=== PATIENT | male | born 1940 | race Caucasian/White ===

== ENCOUNTER 2017-05-19 07:39 | Inpatient (IN) | payer OTHER ==
[~2017-05-19] VITALS: Ht 167.6 cm; Wt 70.5 kg
[~2017-05-19 07:39] MED LIST: GLUCOPHAGE1000 MG PO; HYDROCODON-ACE1 EAC7 PO; METFORMIN HCL500 MG PO; MOTRIN800 MG PO; OLANZAPINE20 MG PO; PRAVACHOL40 MG PO; PREVACID30 MG PO; PRILOSEC40 MG PO; PROZAC40 MG PO; ZOFRAN ODT4 MG PO
[2017-05-19 08:15] LABS: HEMATOCRIT 42.9 % (38.0-50.0); MCH 30.5 PG (29.0-34.0); MCHC 34.5 G/DL (30.0-36.0); MCV 88.5 FL (86-99); RBC DIS.WIDTH-CV 12.8 % (11.8-14.6); RBC DIS.WIDTH-SD 41.6 % (39-53); RED BLOOD COUNT 4.85 M/uL (4.00-5.50); WHITE BLOOD COUNT 12.1 K/uL (4.1-10.2)
[2017-05-19 08:35] LABS: CHLORIDE 102 mEq/L (99-109); POTASSIUM 4.4 mEq/L (3.7-5.4); SODIUM 137 mEq/L (136-147)
[2017-05-19 08:37] LABS: GLUCOSE 124 mg/dL (70-99)
[2017-05-19 08:38] LABS: ANION GAP 10 MEQ/L (2-14); TROP-I INTERPRETATION NEGATIVE; TROPONIN-I < 0.01 ng/mL (0.0-0.30)
[2017-05-19 08:39] LABS: TOTAL BILIRUBIN 0.5 mg/dL (0.0-1.0)
[2017-05-19 08:41] LABS: ALKALINE PHOSPHATASE 69 IU/L (3-129); GFR ESTIMATE (CALCULATED) > 59 mL/min/
[2017-05-19 08:42] LABS: UREA NITROGEN (BUN) 16 mg/dL (9-23)
[2017-05-19 08:44] LABS: LIPASE 8 U/L (1.0-51.0)
[2017-05-19 09:00] LABS: MEAN PLAT.VOLUME 9.6 uM^3 (9.0-12.4); PLAT.SUFFICIENCY INCREASED; PLATELET COUNT 393 K/uL (156-360)
[2017-05-19 09:18] LABS: ADD MIUA? YES; BILIRUBIN NEGATIVE; BLOOD NEGATIVE; COLOR YELLOW ((YELLOW)); GLUCOSE (STRIP) NEGATIVE; KETONES 20; LEUKOCYTES NEGATIVE; NITRITE NEGATIVE; PROTEIN (STRIP) 30; UROBILINOGEN 0.2 MG/DL (0.2-1.0)
[2017-05-19 09:24] LABS: BACTERIA RARE /HPF; CALCIUM OXALATE CRYSTALS 1+ /HPF; EPITHELIAL CELLS RARE /HPF; MUCUS 2+ /LPF; RED BLOOD CELLS 0-5 /HPF (0-5); WHITE BLOOD CELLS 0-5 /HPF (0-5)
[2017-05-19] MEDS ORDERED: LANSOPRAZOLE30 MG PO (11:27)
[2017-05-19] MEDS ORDERED: DAILY VITAMIN1 EAC4 PO (11:27)
[2017-05-19] MEDS ORDERED: LO-DOSE ASPIRIN81 M1 PO (11:27)
[2017-05-19 17:45] VITALS: BP 120/57
[2017-05-19 20:35] VITALS: BP 107/52
[2017-05-20] VITALS (8 sets, daily range): BP systolic 112–176; BP diastolic 55–97
[2017-05-20 07:19] LABS: HEMATOCRIT 36.5 % (38.0-50.0); MCH 31.3 PG (29.0-34.0); MCHC 34.2 G/DL (30.0-36.0); MCV 91.5 FL (86-99); MEAN PLAT.VOLUME 10.2 uM^3 (9.0-12.4); PLATELET COUNT 317 K/uL (156-360); RBC DIS.WIDTH-CV 13.4 % (11.8-14.6); RBC DIS.WIDTH-SD 45.1 % (39-53); RED BLOOD COUNT 3.99 M/uL (4.00-5.50); WHITE BLOOD COUNT 8.9 K/uL (4.1-10.2)
[2017-05-20 07:45] LABS: ANION GAP 5 MEQ/L (2-14); CHLORIDE 107 MEQ/L (99-109); GFR ESTIMATE (CALCULATED) > 59 mL/min/; GLUCOSE 106 mg/dL (70-99); POTASSIUM 4.7 MEQ/L (3.7-5.4); SAMPLE HEMOLYSIS CHECK 1; SAMPLE ICTERIC CHECK 0; SAMPLE LIPEMIA CHECK 0; SODIUM 139 MEQ/L (136-147); UREA NITROGEN (BUN) 8 mg/dL (9-23)
[2017-05-21 00:02] VITALS: BP 121/58
[2017-05-21 04:08] VITALS: BP 114/54
[2017-05-21 06:45] VITALS: BP 113/56
[2017-05-21 07:05] LABS: HEMATOCRIT 35.2 % (38.0-50.0); MCH 30.8 PG (29.0-34.0); MCHC 33.8 G/DL (30.0-36.0); MCV 91.2 FL (86-99); MEAN PLAT.VOLUME 10.2 uM^3 (9.0-12.4); PLATELET COUNT 298 K/uL (156-360); RBC DIS.WIDTH-CV 13.5 % (11.8-14.6); RBC DIS.WIDTH-SD 45.1 % (39-53); RED BLOOD COUNT 3.86 M/uL (4.00-5.50); WHITE BLOOD COUNT 8.7 K/uL (4.1-10.2)
[2017-05-21 07:30] LABS: ANION GAP 4 MEQ/L (2-14); CHLORIDE 107 MEQ/L (99-109); GFR ESTIMATE (CALCULATED) > 59 mL/min/; GLUCOSE 111 mg/dL (70-99); POTASSIUM 4.1 MEQ/L (3.7-5.4); SAMPLE HEMOLYSIS CHECK 0; SAMPLE ICTERIC CHECK 0; SAMPLE LIPEMIA CHECK 0; SODIUM 140 MEQ/L (136-147); UREA NITROGEN (BUN) 6 mg/dL (9-23)
[2017-05-21 11:51] VITALS: BP 114/60
[2017-05-21 16:14] VITALS: BP 130/66
[2017-05-21 20:08] VITALS: BP 153/65
[2017-05-22 00:13] VITALS: BP 129/61
[2017-05-22 04:11] VITALS: BP 134/62
[2017-05-22 06:38] LABS: HEMATOCRIT 35.1 % (38.0-50.0); MCH 31.7 PG (29.0-34.0); MCHC 34.5 G/DL (30.0-36.0); MCV 91.9 FL (86-99); MEAN PLAT.VOLUME 9.8 uM^3 (9.0-12.4); PLATELET COUNT 300 K/uL (156-360); RBC DIS.WIDTH-CV 13.3 % (11.8-14.6); RED BLOOD COUNT 3.82 M/uL (4.00-5.50); WHITE BLOOD COUNT 8.9 K/uL (4.1-10.2)
[2017-05-22 07:03] LABS: ANION GAP 5 MEQ/L (2-14); CHLORIDE 108 MEQ/L (99-109); GFR ESTIMATE (CALCULATED) > 59 mL/min/; GLUCOSE 108 mg/dL (70-99); SAMPLE HEMOLYSIS CHECK 0; SAMPLE ICTERIC CHECK 0; SAMPLE LIPEMIA CHECK 0; SODIUM 142 MEQ/L (136-147); UREA NITROGEN (BUN) 6 mg/dL (9-23)
[2017-05-22 07:45] VITALS: BP 137/71
[2017-05-22 15:00] VITALS: BP 134/67
[2017-05-22 21:31] VITALS: BP 141/62
[2017-05-23 00:09] VITALS: BP 133/59; BP 141/62
[2017-05-23 04:06] VITALS: BP 140/63
[2017-05-23 07:00] VITALS: BP 130/64
[2017-05-23 07:15] LABS: HEMATOCRIT 34.5 % (38.0-50.0); MCH 29.8 PG (29.0-34.0); MCV 90.3 FL (86-99); MEAN PLAT.VOLUME 9.6 uM^3 (9.0-12.4); PLATELET COUNT 349 K/uL (156-360); RBC DIS.WIDTH-CV 12.9 % (11.8-14.6); RBC DIS.WIDTH-SD 42.8 % (39-53); RED BLOOD COUNT 3.82 M/uL (4.00-5.50); WHITE BLOOD COUNT 8.1 K/uL (4.1-10.2)
[2017-05-23 07:42] LABS: ANION GAP 4 MEQ/L (2-14); CHLORIDE 108 MEQ/L (99-109); GFR ESTIMATE (CALCULATED) > 59 mL/min/; GLUCOSE 104 mg/dL (70-99); POTASSIUM 4.3 MEQ/L (3.7-5.4); SAMPLE HEMOLYSIS CHECK 0; SAMPLE ICTERIC CHECK 0; SAMPLE LIPEMIA CHECK 0; SODIUM 142 MEQ/L (136-147); UREA NITROGEN (BUN) 6 mg/dL (9-23)
[2017-05-23 11:44] VITALS: BP 130/62
[2017-05-23] MEDS ORDERED: HYDROCODON-ACE1 EAC7 PO (12:50)
[2017-05-23 16:00] VITALS: BP 161/61
[2017-05-23 23:25] VITALS: BP 157/70
[2017-05-24 07:35] VITALS: BP 114/65
[2017-05-24 08:03] LABS: HEMATOCRIT 38.7 % (38.0-50.0); MCH 30.6 PG (29.0-34.0); MCHC 33.9 G/DL (30.0-36.0); MCV 90.4 FL (86-99); RBC DIS.WIDTH-CV 13.2 % (11.8-14.6); RBC DIS.WIDTH-SD 43.3 % (39-53); RED BLOOD COUNT 4.28 M/uL (4.00-5.50); WHITE BLOOD COUNT 8.5 K/uL (4.1-10.2)
[2017-05-24 08:30] LABS: ANION GAP 6 MEQ/L (2-14); CHLORIDE 105 MEQ/L (99-109); GFR ESTIMATE (CALCULATED) > 59 mL/min/; GLUCOSE 96 mg/dL (70-99); POTASSIUM 4.2 MEQ/L (3.7-5.4); SAMPLE HEMOLYSIS CHECK 0; SAMPLE ICTERIC CHECK 0; SAMPLE LIPEMIA CHECK 0; SODIUM 141 MEQ/L (136-147); UREA NITROGEN (BUN) 7 mg/dL (9-23)
[2017-05-24 08:34] LABS: MEAN PLAT.VOLUME 9.8 uM^3 (9.0-12.4); PLAT.SUFFICIENCY ADEQUATE; PLATELET COUNT 399 K/uL (156-360)
== END 2017-05-24 11:35 | disposition home or self-care (01) | DRG 337 ==
LOC: EME 07:39 → SDC 14:08 → 2SOUTH 15:43 → 2EAST 15:43 → ENRESERV 15:46 → 2EAST 17:19
PROVIDERS: Nurse Practitioner Family; Surgery
DX: K56.5 Intestinal adhesions [bands] with obstruction (postinfection) (principal); E11.9 Type 2 diabetes mellitus without complications; I25.10 Atherosclerotic heart disease of native coronary artery without angina pectoris; K21.9 Gastro-esophageal reflux disease without esophagitis; F20.9 Schizophrenia, unspecified; I25.2 Old myocardial infarction; Z79.82 Long term (current) use of aspirin; Z90.81 Acquired absence of spleen
CPT/HCPCS: 71010; 74177; 80048; 80053; 81003; 83690; 84484; 85027; 93005; 99281; 99285; C9113; J0131; J0330; J1100; J1170; J1650; J2175; J2405; J2710; J3010; J7030; J7120